=== PATIENT | female | born 1950 | race Caucasian/White ===

== ENCOUNTER → 2017-03-08 10:45 | Outpatient (CLI) | payer MEDICARE | END | disposition home or self-care (01) | LOC: D.CT 10:30 | DX: N18.6 End stage renal disease (principal) ==

== ENCOUNTER → 2017-03-26 10:10 | Outpatient (CLI) | payer MEDICARE, OTHER | END | disposition home or self-care (01) | LOC: D.RAD 10:10 | DX: N28.89 Other specified disorders of kidney and ureter (principal) ==